=== PATIENT | female | born 1985 | race Caucasian/White ===

== ENCOUNTER 2017-11-15 09:11 | Inpatient (IN) | payer OTHER ==
[2017-11-22] MEDS ORDERED: WATER FOR IRRIG STERILE IR ONE (13:56)
[2017-11-22] MEDS ORDERED: NACL 0.9% IR ONE (13:56)
[2017-11-22 16:48] VITALS: BP 99/74
== END 2017-11-15 11:08 | disposition home or self-care (01) | DRG 782 ==
LOC: APU 09:11
PROVIDERS: ADMIT Obstetrics & Gynecology Gynecology; ATTEND Obstetrics & Gynecology Gynecology
DX: O34.211 Maternal care for low transverse scar from previous cesarean delivery (principal); Z3A.39 39 weeks gestation of pregnancy

== ENCOUNTER 2017-11-17 14:44 | Outpatient (CLI) | payer OTHER ==
[2017-11-17 15:54] VITALS: BP 120/66
--- NOTE | 2017-11-17 17:30 | Ultrasound Report ---
FINAL REPORT EXAM: US OB LIMITED HISTORY: WELL BEING, DECREASED FM, IRAM TECHNIQUE: Transabdominal sonography of the pelvis. PRIORS: None. FINDINGS: There is a single, live intrauterine in cephalic presentation. heart motion is detected and heart rate is 163 beats per minute. Placenta location not evaluated. Biometric data not obtained. survey not performed. Amniotic fluid index is 9.2 cm. Remainder of the uterus and adnexa grossly unremarkable. IMPRESSION: 1. Single, live intrauterine .
--- NOTE | 2017-11-17 17:30 | Ultrasound Report ---
FINAL REPORT EXAM: US OB BPP WO NON-STRESS HISTORY: WELL BEING, DECREASED FM, IRAM TECHNIQUE: Transabdominal sonography of the pelvis. PRIORS: None. FINDINGS: Biophysical profile: breathing movements: 2/2 movements: 2/2 posture and tone: 2/2 Qualitative amniotic fluid volume: 2/2 Total: 8/8 heart rate 163 beats per minute. IMPRESSION: 1. Biophysical profile as noted above.
== END 2017-11-17 16:48 | disposition home or self-care (01) ==
LOC: TRG 14:44
PROVIDERS: ATTEND Obstetrics & Gynecology
DX: O47.1 False labor at or after 37 completed weeks of gestation (principal); Z3A.39 39 weeks gestation of pregnancy
CPT/HCPCS: 59025; 76815; 76819

== ENCOUNTER 2017-11-22 09:12 | Inpatient (IN) | payer OTHER ==
[2017-11-22] MEDS ORDERED: REGLAN IV SCH (10:32)
[2017-11-22] MEDS ORDERED: BICITRA PO SCH (10:32)
[2017-11-22] MEDS ORDERED: PEPCID IV SCH (10:32)
[2017-11-22 10:44] LABS: Basophils # (Auto) 0.1 K/mm3 (0.0-0.1); Basophils % (Auto) 0.4 % (0.0-1.8); Eosinophils # (Auto) 0.1 K/mm3 (0.0-0.4); Eosinophils % (Auto) 0.7 % (0.0-4.3); Hematocrit 42.6 % (30.3-42.9); Hemoglobin 14.3 gm/dl (10.1-14.3); Lymphocytes # (Auto) 2.7 K/mm3 (1.2-5.4); Mean Corpuscular HGB Conc 34 % (30-34); Mean Corpuscular Hemoglobin 30 pg (28-32); Mean Corpuscular Volume 90 fl (79-97); Monocytes # (Auto) 0.9 K/mm3 (0.0-0.8); Platelet Count 170 K/mm3 (140-440); Red Blood Count 4.75 M/mm3 (3.65-5.03); Red Cell Distribution Width 14.4 % (13.2-15.2)
[2017-11-22] MEDS ORDERED: LACTATED RINGERS 1,000 ML IV SCH ×2 (11:00→23:45)
[2017-11-22] MEDS ORDERED: ANCEF/STERILE WATER 2 GM/20 ML 2 GM/20 ML SYRINGE IV NR (11:00)
[2017-11-22] MEDS ORDERED: PITOCin/NS 20 UNIT/1000ML DRIP 20 UNITS/1,000 ML BAG IV SCH ×2 (11:00→16:00)
--- NOTE | 2017-11-22 11:10 | History and Physical Report ---
History of Present Illness Date of examination: 11/22/17 Date of admission: 11/22/17 09:47 Chief complaint: Here for repeat History of present illness: 32 y/o at 39+ wks here for 2nd repeat LTCS; she is a [facility] patient. course complicated by Obesity and prior Past History Past Surgical History: section - Obstetrical History : 4 Medications and Allergies Allergies Allergy/AdvReac Type Severity Reaction Status Date / Time No Known Allergies Allergy Verified 01/22/16 15:28 Home Medications Medication Instructions Recorded Confirmed Last Taken Type Pnv No.121/Iron/Folic Acid 1 tab PO QDAY 11/15/17 11/22/17 1 Day Ago History [ Multivitamin Tablet] ~11/21/17 Active Meds: Active Medications Citric Acid/Sodium Citrate (Bicitra) 30 ml PO ONCE MARC Stop: 11/22/17 23:00 Famotidine (Pepcid) 20 mg IV ONCE MARC Stop: 11/22/17 23:00 Cefazolin Sodium (Ancef/Sterile Water 2 Gm/20 Ml) 2 gm in 20 mls @ 80 mls/hr IV PREOP NR; Protocol Stop: 11/22/17 23:00 Lactated Ringer's (Lactated Ringers) 1,000 mls @ 2,250 mls/hr IV PREOP MARC Stop: 11/23/17 11:27 Last Admin: 11/22/17 10:53 Dose: 2,250 mls/hr Oxytocin/Sodium Chloride (Pitocin/Ns 20 Unit/1000ml Drip) 20 units in 1,000 mls @ 0 mls/hr IV TITR MARC Metoclopramide HCl (Reglan) 10 mg IV ONCE MARC Stop: 11/22/17 23:00 - Vital Signs Vital signs: Vital Signs Temp Resp 98.1 F 18 11/22/17 10:38 11/22/17 10:38 Temp Pulse Resp BP Pulse Ox 98.1 F 18 11/22/17 10:38 11/22/17 10:38 - Physical Exam Cardiovascular: Regular rate, Normal S1, Normal S2 Lungs: Positive: Clear to auscultation, Normal air movement Abdomen: Positive: normal appearance, soft. Negative: distention, tenderness, guarding Genitourinary (Female): Positive: normal external genitalia Uterus: Positive: enlarged (EFW difficult due to body habitus) Results Result Diagrams: 11/22/17 10:10 Abnormal lab results 11/22/17 Range/Units 10:10 WBC 13.0 H (4.5-11.0) K/mm3 [place] # 0.9 H (0.0-0.8) K/mm3 Seg Neutrophils % 70.9 H (40.0-70.0) % Seg Neutrophils # 9.2 H (1.8-7.7) K/mm3 All other labs normal. Assessment and Plan A: 32 y/o at 39+ wks here for repeat LTCS and BTL - P: -Has previoulsy been consented -Proceed to the OR once available - Patient Problems (1) 39 weeks gestation of Current Visit: Yes Status: Acute (2) History of Current Visit: Yes Status: Acute
[2017-11-22] MEDS ORDERED: NACL 0.9% IR ONE (13:56)
[2017-11-22] MEDS ORDERED: WATER FOR IRRIG STERILE ONE (13:56)
[2017-11-22] MEDS ORDERED: NEO SYNEPHRINE/NS Syringe(OR USE) IV ONE (14:00)
[2017-11-22] MEDS ORDERED: ZOFRAN ONE (14:00)
[2017-11-22] MEDS ORDERED: NEO SYNEPHRINE ONE (14:52)
[2017-11-22] MEDS ORDERED: ROBINUL ONE (15:00)
[2017-11-22] MEDS ORDERED: XYLOCAINE MPF 2% ONE (15:00)
[2017-11-22] MEDS ORDERED: ASTRAMORPH PF 10MG/10ML ONE (15:01)
[2017-11-22] MEDS ORDERED: SUBLIMAZE ONE (15:16)
[2017-11-22] MEDS ORDERED: ePHEDrine SULFATE ONE (15:30)
[2017-11-22] MEDS ORDERED: PHENERGAN PR PRN (15:37)
[2017-11-22] MEDS ORDERED: TYLENOL PO PRN (15:37)
[2017-11-22] MEDS ORDERED: ANUCORT-HC PR PRN (15:37)
[2017-11-22] MEDS ORDERED: TUCKS PAD TP PRN (15:37)
[2017-11-22] MEDS ORDERED: SENOKOT PO PRN (15:37)
[2017-11-22] MEDS ORDERED: MILK OF MAGNESIA PO PRN (15:37)
[2017-11-22] MEDS ORDERED: NARCAN 0.4 MG/1 ML IV PRN (15:37)
[2017-11-22] MEDS ORDERED: ZOFRAN IV PRN (15:37)
[2017-11-22] MEDS ORDERED: LANSINOH TP PRN (15:37)
[2017-11-22] MEDS ORDERED: MYLICON PO PRN (15:37)
[2017-11-22] MEDS ORDERED: ePHEDrine 50 MG/5 ML-0.9% NACL IV PRN (15:56)
[2017-11-22] MEDS ORDERED: SODIUM CHLORIDE FLUSH SYRINGE 10 ML IV SCH (16:00)
--- NOTE | 2017-11-22 16:01 | Operative Report ---
Operative Report Operative Report: DATE: 11/22/2017 PREOPERATIVE DIAGNOSIS: 32-year-old at 39+ weeks for repeat and tubal ligation, Morbid obesity BMI 55 POSTOP DIAGNOSIS: As above NAME OF PROCEDURE: Repeat low transverse section SURGEON: KIRILL MEDRANO MD EQUIPMENT SERVICE ENGINEER: [] ANESTHESIA: Combined spinal epidural EBL: 600 mL PATHOLOGY SPECIMEN: None URINE OUTPUT: 225 mL FINDINGS: Female infant in cephalic presentation, time of 1445, Apgars 8 and 9, weight 9 pounds or 4069 g, normal uterus tubes and ovaries bilaterally, moderate adhesions DESCRIPTION OF PROCEDURE: She was taken to the operating room where she was prepped and draped in a sterile fashion, she was placed in the dorsal supine position. Pfannenstiel incision was performed through her prior incisional scar which was carried through to underlying rectus fascia which was scored in the midline. The fascial incision was extended laterally with use of Vitale scissors, the anterior leaf was then grasped with Kochers forceps elevated dissected sharply and bluntly off the underlying rectus in a similar fashion inferior leaf was grasped elevated dissected sharply and bluntly off the underlying rectus. The rectus was in the midline, good visualization of bladder was noted. A bladder blade was placed in the patient's pelvic cavity. A hysterotomy incision was then performed in the lower segment with clear amniotic fluid noted, hysterotomy incision was extended laterally with the use of fingers manually. in cephalic presentation was delivered in the usual manner; cord was clamped and cut infant was handed over to waiting nursery staff. The placenta was then delivered manually intact, the uterus was exteriorized cleared of all clots and debris. Hysterotomy incision was then closed in a running locked fashion with 0 Vicryl on a CTX; using the same suture was imbricate the initial layer. Interrupted ibdhzo-yy-lubcm stitches were used to obtain hemostasis. Uterus was then returned to the patient's pelvic cavity; peritoneal edges were grasped with hemostats and Charissa's elevated copious irrigation was used to clear the gutters of all clots and debris. Tercel hemostatic agent was then applied to the hysterotomy incision as a means to prevent future bleeding. The peritoneal layer was then closed in a running fashion with 3-0 Vicryl and the rectus was reapproximated with a single objbgi-be-lrvry stitch. The fascia was closed in a running fashion with 0 Vicryl and tied in the opposite side. The subcutaneous layer was irrigated and then reapproximated with interrupted [id number]-ubkgp stitches. The skin was closed in a subcuticular manner with 4-0 Vicryl. She tolerated the procedure well lap and instrument counts were correct 2 she did receive 2 g of Ancef prior to incision she is transferred to PACU in stable condition thank you.
--- NOTE | 2017-11-22 16:15 | Post Anesthesia Evaluation ---
- Post Anesthesia Evaluation Patient Participated: Yes Airway Patent: Yes Stable Respiratory Function: Yes Nausea/Vomiting: No Temp > 96.8F: Yes Pain Manageable: Yes Adequeate Hydration: Yes Anesthesia Complications: No Block Receding Appropriately: Yes Patient on Ventilator: No
[2017-11-22] MEDS: MOTRIN PO PRN (20:55)
[2017-11-22] MEDS: PERCOCET 5/325 PO PRN (20:55)
[2017-11-22] MEDS ORDERED: TORADOL IV PRN (21:30)
[2017-11-23] MEDS: PERCOCET 5/325 PO PRN ×3 (04:12→16:01)
[2017-11-23] MEDS: MOTRIN PO PRN (04:13)
[2017-11-23 05:30] LABS: Hematocrit 37.8 % (30.3-42.9); Hemoglobin 12.4 gm/dl (10.1-14.3)
[2017-11-23] MEDS ORDERED: BOOSTRIX IM ONE (06:00)
[2017-11-23] MEDS ORDERED: BENADRYL PO PRN (10:00)
--- NOTE | 2017-11-23 10:48 | Progress Note ---
Assessment and Plan A: POD #1 Stable P: Follow Routine PostOp Orders Encourage increased ambulation Advance Diet with +Flatus Subjective - Subjective Date of service: 11/23/17 Patient reports: appetite normal, voiding normally, pain well controlled, ambulating normally : doing well, bottle feeding (and ) Objective - Vital Signs Latest vital signs: Vital Signs Temp Pulse Resp BP 11/23/17 04:10 98.6 F 88 20 113/68 11/23/17 00:00 98.2 F 93 H 20 104/55 11/22/17 20:05 98.2 F 99 H 20 104/78 11/22/17 17:00 98.3 F 80 22 86/37 Intake and Output 11/22/17 11/23/17 11/23/17 22:59 06:59 14:59 Intake Total 240 Output Total 700 400 400 Balance -460 -400 -400 Intake: Oral 240 Output: Urine 700 400 400 Indwelling Catheter 700 400 400 Other: Total, Intake Amount 240 Total, Output Amount 700 400 400 - Exam Breasts: Present: normal Cardiovascular: Present: Regular rate Lungs: Present: Clear to auscultation, Normal air movement Abdomen: Present: normal appearance, soft, normal bowel sounds Uterus: Present: normal, firm, fundal height below umbilicus Extremities: Present: normal Incision: Present: normal, dry, dressed
[2017-11-23] MEDS: PRENATAL VITAMIN PO SCH (12:00)
[2017-11-23] MEDS: FEOSOL PO SCH (12:00)
[2017-11-23] MEDS ORDERED: M-M-R II VACCINE SUB-Q ONE (15:44)
[2017-11-23] MEDS ORDERED: DULCOLAX PR PRN (22:12)
[2017-11-24] MEDS: PERCOCET 5/325 PO PRN ×3 (00:17→12:15)
[2017-11-24] MEDS: MOTRIN PO PRN ×3 (00:17→12:15)
--- NOTE | 2017-11-24 10:32 | Progress Note ---
Assessment and Plan A: POD#2 s/p Repeat C/S stable P: Routine PP/PO care Discharge home today Incision check in 1 week Subjective - Subjective Date of service: 11/24/17 Principal diagnosis: s/p Repeat C/S Interval history: See H&P and delivery note Patient reports: appetite normal, voiding normally, pain well controlled, flatus , ambulating normally [place]: doing well, bottle feeding Objective - Vital Signs Latest vital signs: Vital Signs Temp Pulse Resp BP BP Pulse Ox 11/24/17 08:21 98.2 F 90 20 108/49 94 11/23/17 23:30 98.6 F 88 18 104/59 11/23/17 17:05 98.2 F 92 H 20 105/51 Intake and Output 11/23/17 11/24/17 11/24/17 23:59 07:59 15:59 Intake Total 240 500 Balance 240 500 Intake: Oral 240 200 Intake, Free Water 300 Other: Total, Intake Amount 240 200 - Exam Breasts: Present: normal Cardiovascular: Present: Regular rate, Normal S1, Normal S2 Lungs: Present: Clear to auscultation, Normal air movement Abdomen: Present: normal appearance, soft, tenderness (expected s/p surgery), normal bowel sounds. Absent: distention Vulva: both: normal Uterus: Present: normal, firm, fundal height at umbilicus Extremities: Present: normal Deep Tendon Reflex Grade: Normal +2 Incision: Present: normal (LTI, closed with SQ sutures and Steri strips, CDI, no drainage. ), dry, intact, dressed (Pressure dressing removed, minimal old blood noted to telfa. )
--- NOTE | 2017-11-24 10:34 | Discharge Summary ---
Providers - Providers Date of Admission: 11/22/17 09:47 Date of discharge: 11/24/17 Attending physician: RONI SAMPSON MD Primary care physician: RONI SAMPSON MD Hospitalization Reason for admission: IUP at term Delivery: Procedure: repeat low transverse Procedure details: See H&P and operative note Incision: normal (LTI, closed with SQ sutures and steri strips, CDI, no drainage. Strict incision care instructions given. S&S reviewed to report.), dry , intact complications: none Discharge diagnosis: IUP at term delivered baby: female Condition at discharge: Good Disposition: DC-01 TO HOME OR SELFCARE Plan - Discharge Medications Prescriptions: Ibuprofen [Motrin 600 MG tab] 600 mg PO Q8H PRN #30 tablet PRN Reason: Pain Multivitamin with Iron [Multivitamins with Iron] 1 each PO DAILY #30 tablet oxyCODONE /ACETAMINOPHEN [Percocet 5/325] 1 tab PO Q6HR PRN #30 tablet PRN Reason: Pain - Provider Discharge Summary Activity: routine, no sex for 6 weeks, no heavy lifting 4 weeks, no strenuous exercise Diet: routine Instructions: routine Additional instructions: [] Smoking cessation referral if applicable(refer to patient education folder for contact #) [] Refer to [facility] Booklet Call your doctor immediately for: * Fever > 100.5 * Heavy vaginal bleeding ( >1 pad per hour) * Severe persistent headache * Shortness of breath * Reddened, hot, painful area to leg or breast * Drainage or odor from incision. * Keep incision clean and dry at all times and follow doctor's instructions regarding bathing/showering - Follow up plan Follow up: RONI SAMPSON MD [Primary Care Provider] - 7 Days
[2017-11-24] MEDS: PRENATAL VITAMIN PO SCH (12:15)
[2017-11-24] MEDS: FEOSOL PO SCH (12:15)
[2017-11-24 14:49] VITALS: BP 115/72
== END 2017-11-24 14:00 | disposition home or self-care (01) | DRG 765 ==
LOC: TRG 09:12 → APU 09:47 → OB 16:54
PROVIDERS: ADMIT Obstetrics & Gynecology; ATTEND Obstetrics & Gynecology
PROC: 10D00Z1 Extraction of Products of Conception, Low, Open Approach (ICD-10-PCS; principal; 2017-11-22)
DX: O34.211 Maternal care for low transverse scar from previous cesarean delivery (principal); Z68.43 Body mass index [BMI] 50.0-59.9, adult; E66.01 Morbid (severe) obesity due to excess calories; O99.214 Obesity complicating childbirth; Z3A.39 39 weeks gestation of pregnancy; Z37.0 Single live birth
CPT/HCPCS: 36415; 85014; 85018; 85025; 86850; 86900; 86901; 99211; G0463; J0690; J1885; J2274; J2370; J2405; J2590; J2765; J3010; J7120

== ENCOUNTER 2021-10-13 16:03 | Emergency (ER) | payer OTHER ==
--- NOTE | 2021-10-13 17:11 | XRay Report ---
CHEST 2 VIEWS INDICATION: cough. COMPARISON: None. FINDINGS: Support devices: None. Heart: Within normal limits. Lungs/Pleura: No acute air space or interstitial disease. No significant pleural effusion. IMPRESSION: No acute findings. Signer Name: Martir Reich MD Signed: 10/13/2021 5:07 PM Workstation Name: [id number]
[2021-10-13] MEDS ORDERED: ALBUTEROL 2.5 MG/3 ML NEBU IH ONE (22:29)
[2021-10-13] MEDS ORDERED: IBUPROFEN 800 MG TAB PO ONE (22:29)
[2021-10-13] MEDS ORDERED: predniSONE 20 MG TAB PO ONE (22:29)
--- NOTE | 2021-10-13 22:51 | Emergency Department Report ---
ED General Adult HPI - General Chief complaint: Upper Respiratory Infection Stated complaint: COUGH Time Seen by Provider: 10/13/21 22:28 Source: patient Mode of arrival: Ambulatory Limitations: No Limitations - History of Present Illness Initial comments: Patient 36-year-old female who presents with cough productive with chest wall pain for 3 weeks. Cough is described as yellow-white thick patient states nocturnal wheezing. No fevers no chills no nausea or vomiting. Symptoms are exacerbated by vomiting exposure. Symptoms are relieved by nothing tried. Patient is not COVID vaccinated. Patient denies smoking or substance. Symptoms are relieved by nothing tried. Severity scale (0 -10): 4 - Related Data Home Medications Medication Instructions Recorded Confirmed Last Taken Pnv No.121/Iron/Folic Acid 1 tab PO QDAY 11/15/17 11/22/17 1 Day Ago [ Multivitamin Tablet] ~11/21/17 Previous Rx's Medication Instructions Recorded Last Taken Type Ibuprofen [Motrin 600 MG tab] 600 mg PO Q8H PRN #30 tablet 11/22/17 Unknown Rx Multivitamin with Iron 1 each PO DAILY #30 tablet 11/22/17 Unknown Rx [Multivitamins with Iron] oxyCODONE /ACETAMINOPHEN [Percocet 1 tab PO Q6HR PRN #30 tablet 11/22/17 Unknown Rx 5/325] Albuterol Mdi (or & Nicu Only) 2 puff IH QID PRN #8.5 gram 10/14/21 Unknown Rx [ProAir HFA Inhaler] predniSONE [Deltasone] 40 mg PO DAILY 5 Days #10 tab 10/14/21 Unknown Rx Allergies Allergy/AdvReac Type Severity Reaction Status Date / Time No Known Allergies Allergy Verified 01/22/16 15:28 ED Review of Systems ROS: Stated complaint: COUGH Other details as noted in HPI Constitutional: denies: chills, fever Eyes: denies: eye pain, eye discharge, vision change ENT: congestion. denies: ear pain, throat pain Respiratory: cough, shortness of breath, wheezing Cardiovascular: chest pain (Right lateral chest wall pain). denies: palpitations Endocrine: no symptoms reported Gastrointestinal: denies: abdominal pain, nausea, vomiting, diarrhea Genitourinary: denies: urgency, dysuria, discharge Musculoskeletal: denies: back pain, joint swelling, arthralgia Skin: denies: rash, lesions Neurological: denies: headache, weakness, paresthesias Psychiatric: denies: anxiety, depression Hematological/Lymphatic: denies: easy bleeding, easy bruising ED Past Medical Hx - Past Medical History Hx Hypertension: No Hx Congestive Heart Failure: No Hx Diabetes: Yes Hx Deep Vein Thrombosis: No Hx Renal Disease: No Hx Sickle Cell Disease: No Hx Seizures: No Hx Asthma: No Hx COPD: No Hx HIV: No - Social History Smoking Status: Never Smoker - Medications Home Medications: Home Medications Medication Instructions Recorded Confirmed Last Taken Type Pnv No.121/Iron/Folic Acid 1 tab PO QDAY 11/15/17 11/22/17 1 Day Ago History [ Multivitamin Tablet] ~11/21/17 Ibuprofen [Motrin 600 MG tab] 600 mg PO Q8H PRN #30 tablet 11/22/17 Unknown Rx Multivitamin with Iron 1 each PO DAILY #30 tablet 11/22/17 Unknown Rx [Multivitamins with Iron] oxyCODONE /ACETAMINOPHEN [Percocet 1 tab PO Q6HR PRN #30 tablet 11/22/17 Unknown Rx 5/325] Albuterol Mdi (or & Nicu Only) 2 puff IH QID PRN #8.5 gram 10/14/21 Unknown Rx [ProAir HFA Inhaler] predniSONE [Deltasone] 40 mg PO DAILY 5 Days #10 tab 10/14/21 Unknown Rx ED Physical Exam - General Limitations: No Limitations General appearance: alert, in no apparent distress - Head Head exam: Present: normocephalic, normal inspection - Eye Eye exam: Present: EOMI Pupils: Present: normal accommodation - ENT ENT exam: Present: normal orophraynx, mucous membranes moist, TM's normal bilaterally - Neck Neck exam: Present: normal inspection. Absent: tenderness, lymphadenopathy - Respiratory Respiratory exam: Present: wheezes, chest wall tenderness (Right anterior lateral). Absent: rales, rhonchi, stridor, prolonged expiratory - Cardiovascular Cardiovascular Exam: Present: regular rate, normal rhythm, normal heart sounds. Absent: systolic murmur, diastolic murmur, rubs, gallop - GI/Abdominal GI/Abdominal exam: Present: soft, normal bowel sounds. Absent: distended, tenderness - Rectal Rectal exam: Present: deferred - Extremities Exam Extremities exam: Present: normal inspection, full ROM, normal capillary refill - Back Exam Back exam: Present: normal inspection, full ROM. Absent: CVA tenderness (R), CVA tenderness (L) - Neurological Exam Neurological exam: Present: alert, oriented X3, CN II-XII intact - Expanded Neurological Exam Expanded Patient oriented to: Present: person, place, time Speech: Present: fluid speech Best Eye Response ([place]): (4) open spontaneously Best Motor Response (Peter): (6) obeys commands Best Verbal Response ([place]): (5) oriented Peter Total: 15 - Psychiatric Psychiatric exam: Present: normal affect, normal mood - Skin Skin exam: Present: warm, dry, intact, normal color. Absent: rash ED Course Vital Signs 10/13/21 23:03 Pulse Rate [ 68 Bilateral] Respiratory 18 Rate [Bilateral ] ED Medical Decision Making - Radiology Data Radiology results: report reviewed, image reviewed CHEST 2 VIEWS INDICATION: cough. COMPARISON: None. FINDINGS: Support devices: None. Heart: Within normal limits. Lungs/Pleura: No acute air space or interstitial disease. No significant pleural effusion. IMPRESSION: No acute findings. Signer Name: Martir Reich MD Signed: 10/13/2021 5:07 PM Workstation Name: [id number] Transcribed By: ES Dictated By: Martir Reich MD Electronically Authenticated By: Martir Reich MD Signed Date/Time: 10/13/211706 DD/ 05 TD/TT: - Medical Decision Making Chest x-ray no infiltrates no opacities. Lung sounds improved after medications given in ED. Plan DC to home with prescriptions. Follow-up primary care doctor in 2 to 3 days. Return to emergency department should symptoms worsen. Critical care attestation.: If time is entered above; I have spent that time in minutes in the direct care of this critically ill patient, excluding procedure time. ED Disposition Clinical Impression: Bronchitis, Wheezing Disposition: 01 HOME / SELF CARE / HOMELESS Is pt being admited?: No Does the pt Need Aspirin: No Condition: Stable Instructions: Chronic Bronchitis (ED), Upper Respiratory Infection, Adult, How to Use a Metered Dose Inhaler Additional Instructions: Take medications as prescribed, follow-up with your doctor in 2 to 3 days. Return to emergency department should symptoms worsen. Prescriptions: predniSONE [Deltasone] 40 mg PO DAILY 5 Days #10 tab Albuterol Mdi (or & Nicu Only) [ProAir HFA Inhaler] 2 puff IH QID PRN #8.5 gram PRN Reason: Shortness Of Breath Referrals: PRIMARY CAREMD [Primary Care Provider] - 3-5 Days HORTENSIA MONTANA MD [Staff Physician] - 3-5 Days Forms: Work/School Release Form(ED) Time of Disposition: 00:20
[2021-10-14 00:28] VITALS: BP 156/77
== END 2021-10-14 00:28 | disposition home or self-care (01) ==
LOC: ED 16:03
DX: J40 Bronchitis, not specified as acute or chronic (principal); R06.2 Wheezing; E11.9 Type 2 diabetes mellitus without complications
CPT/HCPCS: 71046; 94640; 94644; 99283